=== PATIENT | female | born 1960 | race Caucasian/White ===

== ENCOUNTER 2020-03-21 12:41 | Outpatient (CLI) | payer OTHER, SELFPAY ==
[2020-03-22 13:20] LABS: SARS-CoV-2 RNA PCR Negative
== END 2020-03-21 12:42 | disposition home or self-care (01) ==
LOC: CHSLAB 12:45
PROVIDERS: PCP Emergency Medicine; Visit Provider Emergency Medicine
DX: Z03.818 Encounter for observation for suspected exposure to other biological agents ruled out (principal)
CPT/HCPCS: 87635; C9803; U0003

== ENCOUNTER 2020-04-18 06:34 | Outpatient (CLI) | payer OTHER, SELFPAY ==
[2020-04-18 06:56] LABS: Alanine Aminotransferase 29 U/L (14-59); Albumin Level 3.8 g/dL (3.4-5.0); Alkaline Phosphatase 47 U/L (46-116); Anion Gap 7.3 mmol/L (7-16); Aspartate Amino Transferase 20 U/L (15-37); Bilirubin,Total 0.3 mg/dL (0.00-1.00); Blood Urea Nitrogen 19 mg/dL (7-18); Calcium 8.9 mg/dL (8.5-10.1); Carbon Dioxide 35 mmol/L (21-32); Chloride 106 mmol/L (98-108); Cholesterol 185 mg/dL (0-200); Estimated Glomerular Filt Rate > 60; Glucose 98 mg/dL (70-99); HDL Direct 44 mg/dL (40-60); LDL Cholesterol Calculated 127 mg/dL (<130); Osmolality Calculated 300 mOsm/kg (285-295); Potassium 4.3 mmol/L (3.5-5.1); Sodium 144 mmol/L (136-145); Triglycerides 69 mg/dL (0-150)
== END 2020-04-18 06:35 | disposition home or self-care (01) ==
LOC: CHSLAB 06:37
PROVIDERS: PCP Emergency Medicine; Visit Provider Emergency Medicine
DX: E78.5 Hyperlipidemia, unspecified (principal); E11.9 Type 2 diabetes mellitus without complications
CPT/HCPCS: 36415; 80053; 80061; 83036

== ENCOUNTER 2020-05-02 06:35 | Outpatient (CLI) | payer OTHER, SELFPAY ==
[2020-05-03 18:31] LABS: SARS-CoV-2 RNA PCR Negative
== END 2020-05-02 06:36 | disposition home or self-care (01) ==
LOC: CHSLAB 06:38
PROVIDERS: PCP Emergency Medicine; Visit Provider Emergency Medicine
DX: Z11.59 Encounter for screening for other viral diseases (principal)
CPT/HCPCS: 87635; C9803; U0003

== ENCOUNTER 2020-10-27 06:52 | Outpatient (CLI) | payer OTHER, SELFPAY ==
--- NOTE | ~2020-10-27 | MM_ITS ---
EXAMINATION: MM screening [facility] BI w [facility] HISTORY: Screening TECHNIQUE: Craniocaudal and mediolateral oblique 3-D tomosynthesis images were obtained and synthetic 2-D images were generated. CAD analysis was submitted and interpreted. COMPARISON: 10/16/2019 BREAST PARENCHYMAL COMPOSITION: There are scattered areas of fibroglandular density. FINDINGS: There is no evidence of suspicious mass, calcification, or architectural distortion to sugg est malignancy in either breast. There has been no suspicious interval change. IMPRESSION: 1. No mammographic evidence of malignancy. 2. Recommend routine screening mammography in one year. BI-RADS Category 1: Negative Reviewed, dictated and finalized at location A. HANDLING SUPERVISOR
== END 2020-10-27 06:53 | disposition home or self-care (01) ==
LOC: CHSIMG 06:53
PROVIDERS: PCP Emergency Medicine; Visit Provider Emergency Medicine
DX: Z12.31 Encounter for screening mammogram for malignant neoplasm of breast (principal)
CPT/HCPCS: 77063; 77067

== ENCOUNTER 2021-03-12 06:13 | Outpatient (CLI) | payer OTHER, SELFPAY ==
[2021-03-12 07:00] LABS: Alanine Aminotransferase 29 U/L (14-59); Albumin Level 3.9 g/dL (3.4-5.0); Alkaline Phosphatase 58 U/L (46-116); Anion Gap 9 mmol/L (8-16); Aspartate Amino Transferase 14 U/L (15-37); Bilirubin,Total 0.3 mg/dL (0.00-1.00); Blood Urea Nitrogen 18 mg/dL (7-18); Calcium 8.8 mg/dL (8.5-10.1); Carbon Dioxide 30 mmol/L (21-32); Chloride 102 mmol/L (98-108); Cholesterol 199 mg/dL (0-200); Digoxin 0.7 ng/mL (0.9-2.0); Estimated Glomerular Filt Rate 59; Glucose 108 mg/dL (70-99); HDL Direct 40 mg/dL (40-60); LDL Cholesterol Calculated 130 mg/dL (<130); Osmolality Calculated 294 mOsm/kg (285-295); Potassium 4.2 mmol/L (3.5-5.1); Sodium 141 mmol/L (136-145); Total Protein 7.1 g/dL (6.4-8.2); Triglycerides 147 mg/dL (0-150)
[2021-03-12 07:40] LABS: Thyroid Stimulating Hormone Reflex 1.89 u/IU/mL (0.36-3.74)
== END 2021-03-12 06:14 | disposition home or self-care (01) ==
PROVIDERS: PCP Emergency Medicine; Visit Provider Internal Medicine Cardiovascular Disease
DX: E78.5 Hyperlipidemia, unspecified (principal); I49.9 Cardiac arrhythmia, unspecified; F41.9 Anxiety disorder, unspecified; R00.2 Palpitations; R60.0 Localized edema
CPT/HCPCS: 36415; 80053; 80061; 80162; 84443

== ENCOUNTER 2021-10-01 06:40 | Outpatient (CLI) | payer OTHER, SELFPAY ==
[2021-10-01 06:52] LABS: Hematocrit 42.1 % (35.0-49.0); Mean Corpuscular HGB Conc 33.3 g/dL (32.0-36.0); Mean Corpuscular Hemoglobin 29.4 pg (27.0-31.0); Mean Corpuscular Volume 88.4 fL (78.0-102.0); Mean Platelet Volume 10.3 fl (9.2-11.8); Platelet Count Result 255 K/mm3 (150-420); Red Blood Count 4.76 M/mm3 (4.20-5.40); Red Cell Distribution Width 13.1 % (11.6-14.4)
[2021-10-01 07:06] LABS: Alanine Aminotransferase 38 U/L (14-59); Albumin Level 4.1 g/dL (3.4-5.0); Alkaline Phosphatase 58 U/L (46-116); Anion Gap 10 mmol/L (8-16); Aspartate Amino Transferase 19 U/L (15-37); Bilirubin,Total 0.3 mg/dL (0.00-1.00); Blood Urea Nitrogen 19 mg/dL (7-18); Calcium 8.9 mg/dL (8.5-10.1); Carbon Dioxide 29 mmol/L (21-32); Chloride 102 mmol/L (98-108); Cholesterol 196 mg/dL (0-200); Estimated Glomerular Filt Rate > 60; Glucose 124 mg/dL (70-99); HDL Direct 42 mg/dL (40-60); LDL Cholesterol Calculated 129 mg/dL (<130); Osmolality Calculated 295 mOsm/kg (285-295); Potassium 4.4 mmol/L (3.5-5.1); Sodium 141 mmol/L (136-145); Total Protein 7.2 g/dL (6.4-8.2); Triglycerides 126 mg/dL (0-150)
== END 2021-10-01 06:41 | disposition home or self-care (01) ==
LOC: CHSLAB 06:43
PROVIDERS: PCP Family Medicine; Visit Provider Family Medicine
DX: F32.9 Major depressive disorder, single episode, unspecified (principal); F41.9 Anxiety disorder, unspecified; Z13.220 Encounter for screening for lipoid disorders; R73.9 Hyperglycemia, unspecified; I49.9 Cardiac arrhythmia, unspecified
CPT/HCPCS: 36415; 80053; 80061; 85027

== ENCOUNTER 2022-01-11 00:11 | Day surgery (SDC) | payer OTHER, SELFPAY ==
[2022-01-01 15:08] VITALS: BMI 30.2
[2022-01-11 06:15] VITALS: BP 148/66; PULSE 58; RESP 18; TEMP 37.4; O2SAT 100; BMI 31.6
[2022-01-11] MEDS: LACTATED RINGERS 1,000 ML 150 ML IV CONT (06:37)
--- NOTE | 2022-01-11 07:21 | P.PNAN_ITS ---
Anes - Initial Pre Proc Eval Procedure: Operation Date: 01/11/22 07:30 Proposed Procedures p Screening Colonoscopy - Zain Phillips MD Date/Time: 01/11/22 07:21 Surgeon: Zain Phillips MD Pre Op Diagnosis: neoplasm screening, family hx of colon ca Patient Data Age: 61 Gender: F Height: 1.73 m Weight: 94.4 kg Last Vital Signs Temp 99.3 F 01/11/22 06:15 Pulse 58 L 01/11/22 06:15 Resp 18 01/11/22 06:15 BP 148/66 H 01/11/22 06:15 Pulse Ox 100 01/11/22 06:15 Allergies Allergy/AdvReac Type Severity Reaction Status Date / Time Penicillins Allergy Mild Vomiting Verified 01/11/22 06:23 TAPE Allergy Mild Redness of Uncoded 01/01/22 15:06 Skin Home Medications Medication Instructions Recorded Confirmed Type digoxin 0.25 mcg PO DAILY 08/24/19 01/11/22 History metoprolol succinate 25 mg PO DAILY 08/24/19 01/11/22 History aspirin 325 mg tablet 325 mg PO .Every other day tablet 09/16/21 01/11/22 History Cbd 1 cap PO DAILY 01/01/22 01/11/22 History multivit with min-folic acid 1 tablet PO DAILY 01/01/22 01/11/22 History [Adult One Daily Multivitamin] sertraline 100 mg PO DAILY 01/01/22 01/11/22 History Patient hx anesthesia problems: none Family hx anesthesia problems: none Results Review: All pre-operative results and documents have been reviewed as part of the pre-operative evaluation. [facility] Past Medical History Medical History (Updated 09/16/21 @ 17:20 by Dante Fam DO) Anxiety Cardiac arrhythmia states history of AF; now NSR but occasionally goes in and out AF and paipitations Surgical History Surgical History H/O hysterectomy for benign disease History of appendectomy S/P tonsillectomy Family History Family History (Updated 09/16/21 @ 15:33 by Gretchen Iraheta) Mother Colon cancer Social History Social History Smoking status: Former smoker Tobacco type: cigarettes Smoking end date: 10/03/03 Alcohol intake: current Drinks per week: 10 Living arrangements: with family Spiritual care concerns: No Anes - Eval Final PreProcedure Day of Procedure 01/11/22 07:21 Patient weight: obese Heart: regular rate and rhythm Lungs: clear to auscultation Airway: Mallampati scale Neurological: alert and oriented Last oral intake: >/= 8 hours ASA classification: II Emergent: no Anesthetic plan: proceed Anesthesia type and monitoring: general GIVS and standard monitoring Results Review: All pre-operative results and documents have been reviewed as part of the pre-operative evaluation. Informed Consent: The patient's anesthetic plan and its attendant risks and benefits were discussed with the patient/family/POA. Questions were solicited and answers provided to the satisfaction of the patient/family/POA.
--- NOTE | 2022-01-11 07:22 | WPDGICN ---
Assessment and Plan Assessment and plan (1) Encounter for screening for colorectal cancer in high risk patient: Code(s): Z12.11 - Encounter for screening for malignant neoplasm of colon; Z12.12 - Encounter for screening for malignant neoplasm of rectum; Z91.89 - Other specified personal risk factors, not elsewhere classified Status: Acute Assessment and Plan: Colonoscopy with possible biopsy or polypectomy or cautery or injection of substances. GI Consult Note Consult date/time: 01/11/22 07:22 HPI: Charisse Loja is a 61 year old female referred for colon cancer screening. She has a family history of genetics for high risk of colon cancer her. Her last colonoscopy, 3 years ago was negative for polyps Review of Systems Review of Systems: All systems reviewed & are unremarkable except as noted in HPI and below PMFSH Past Medical History Medical History Anxiety Cardiac arrhythmia states history of AF; now NSR but occasionally goes in and out AF and paipitations Surgical History Surgical History H/O hysterectomy for benign disease History of appendectomy S/P tonsillectomy Family History Family History Mother Colon cancer Social History Social History Smoking status: Former smoker Tobacco type: cigarettes Smoking end date: 10/03/03 Alcohol intake: current Drinks per week: 10 Living arrangements: with family Spiritual care concerns: No Meds Home Medications and Allergies Home Medications Medication Instructions Recorded Confirmed Type digoxin 0.25 mcg PO DAILY 08/24/19 01/11/22 History metoprolol succinate 25 mg PO DAILY 08/24/19 01/11/22 History aspirin 325 mg tablet 325 mg PO .Every other day tablet 09/16/21 01/11/22 History Cbd 1 cap PO DAILY 01/01/22 01/11/22 History multivit with min-folic acid 1 tablet PO DAILY 01/01/22 01/11/22 History [Adult One Daily Multivitamin] sertraline 100 mg PO DAILY 01/01/22 01/11/22 History Allergies Allergy/AdvReac Type Severity Reaction Status Date / Time Penicillins Allergy Mild Vomiting Verified 01/11/22 06:23 TAPE Allergy Mild Redness of Uncoded 01/01/22 15:06 Skin Vital Signs Vital Signs - 24 hr 01/11/22 06:15 Temperature 37.4 C Pulse Rate 58 L Respiratory Rate 18 Blood Pressure 148/66 H Pulse Oximetry 100 Exam Const: General: alert Orientation/consciousness: patient oriented x3 Resp: Auscultation: clear to auscultation bilaterally Cardio: Rhythm: regular rhythm GI: GI Palp: Yes Soft to palpation and No Tenderness to palpation present (GI) Neuro: General: patient oriented x3
[2022-01-11] MEDS: SIMETHICONE ORAL SUSPENSION 20 MG/0.3 ML 30 ML BOTTLE 0.6 ML IRRIGATION (07:31)
[2022-01-11 07:40] VITALS: BP 130/53; PULSE 52; RESP 16; O2SAT 100
[2022-01-11 07:50] VITALS: BP 151/73; PULSE 54; RESP 15; O2SAT 100
[2022-01-11 08:00] VITALS: BP 162/73; PULSE 55; RESP 15; O2SAT 100
== END 2022-01-11 08:06 | disposition home or self-care (01) ==
PROVIDERS: PCP Family Medicine; Visit Provider Internal Medicine Gastroenterology
PROC: 0DJD8ZZ Inspection of Lower Intestinal Tract, Via Natural or Artificial Opening Endoscopic (ICD-10-PCS; CPT 45378; principal; 2022-01-11 07:30)
DX: Z12.11 Encounter for screening for malignant neoplasm of colon (principal); Z80.0 Family history of malignant neoplasm of digestive organs; K64.8 Other hemorrhoids; K57.30 Diverticulosis of large intestine without perforation or abscess without bleeding
CPT/HCPCS: 45378; J2704; J7120

== ENCOUNTER 2022-05-28 06:28 | Outpatient (CLI) | payer OTHER, SELFPAY ==
[2022-05-28 09:55] LABS: Digoxin 1.4 ng/mL (0.9-2.0); Thyroid Stimulating Hormone 0.73 uIU/mL (0.36-3.74)
== END 2022-05-28 06:29 | disposition home or self-care (01) ==
LOC: CHSLAB 06:30
PROVIDERS: PCP Family Medicine; Visit Provider Internal Medicine Cardiovascular Disease
DX: R00.2 Palpitations (principal)
CPT/HCPCS: 36415; 80162; 84443

== ENCOUNTER 2023-02-16 08:33 | Outpatient (CLI) | payer OTHER, SELFPAY ==
--- NOTE | 2023-02-16 11:00 | NEURO_ITS ---
Impression: # Complains of numbness of hands, left more than right. # Mild left Carpal Tunnel Syndrome. # No ulnar neuropathy. # Normal needle/EMG exam Nerve Conduction Studies Anti Sensory Summary Table Stim Site NR Peak (ms) P-T Amp (?V) Site1 Site2 Delta-P (ms) Dist (cm) Emre (m/s) Left Median Anti Sensory (2-3nd Digit) Wrist 4.0 31.5 Wrist 2-3nd Digit 4.0 14.0 35 Wrist 4.1 30.4 Wrist 2-3nd Digit 4.0 14.0 35 Right Median Anti Sensory (2-3nd Digit) Wrist 2.9 19.4 Wrist 2-3nd Digit 2.9 14.0 48 Wrist 3.1 27.8 Wrist 2-3nd Digit 2.9 14.0 48 Left Radial Anti Sensory (Base 1st Digit) Wrist 1.8 24.5 Wrist Base 1st Digit 1.8 0.0 Right Radial Anti Sensory (Base 1st Digit) Wrist 2.3 9.7 Wrist Base 1st Digit 2.3 0.0 Left Ulnar Anti Sensory (5th Digit) Wrist 2.6 24.6 Wrist 5th Digit 2.6 14.0 54 Right Ulnar Anti Sensory (5th Digit) Wrist 2.7 24.1 Wrist 5th Digit 2.7 14.0 52 Motor Summary Table Stim Site NR Onset (ms) O-P Amp (mV) Site1 Site2 Delta-0 (ms) Dist (cm) Emre (m/s) Left Median Motor (Abd Poll Brev) Wrist 3.6 3.3 Elbow Wrist 5.3 29.0 55 Elbow 8.9 2.9 Right Median Motor (Abd Poll Brev) Wrist 3.2 6.1 Elbow Wrist 5.3 28.0 53 Elbow 8.5 5.8 Left Ulnar Motor (Abd Dig Minimi) Wrist 2.4 6.3 A Elbow Wrist 5.2 29.0 56 A Elbow 7.6 3.4 Right Ulnar Motor (Abd Dig Minimi) Wrist 2.5 7.0 A Elbow Wrist 5.1 29.0 57 A Elbow 7.6 3.8 F Wave Studies NR F-Lat (ms) L-R F-Lat (ms) Left Median (Mrkrs) (Abd Poll Brev) 28.22 0.68 Right Median (Mrkrs) (Abd Poll Brev) 27.54 0.68 Left Ulnar (Mrkrs) (Abd Dig Min) 28.23 0.22 Right Ulnar (Mrkrs) (Abd Dig Min) 28.01 0.22 EMG Side Muscle Nerve Root Ins Act Fibs Amp Dur Recrt Comment Right 1stDorInt Ulnar C8-T1 Nml Nml Nml Nml Nml Right Ext Indicis Radial (Post Int) C7-8 Nml Nml Nml Nml Nml Right Ext Digitorum Radial (Post Int) C7-8 Nml Nml Nml Nml Nml Right BrachioRad Radial C5-6 Nml Nml Nml Nml Nml Right PronatorTeres Median C6-7 Nml Nml Nml Nml Nml Right Abd Poll Brev Median C8-T1 Nml Nml Nml Nml Nml Left 1stDorInt Ulnar C8-T1 Nml Nml Nml Nml Nml Left Ext Indicis Radial (Post Int) C7-8 Nml Nml Nml Nml Nml Left Ext Digitorum Radial (Post Int) C7-8 Nml Nml Nml Nml Nml Left BrachioRad Radial C5-6 Nml Nml Nml Nml Nml Left PronatorTeres Median C6-7 Nml Nml Nml Nml Nml Left Abd Poll Brev Median C8-T1 Nml Nml Nml Nml Nml Right ABD Dig Min Ulnar C8-T1 Nml Nml Nml Nml Nml Left ABD Dig Min Ulnar C8-T1 Nml Nml Nml Nml Nml MTDD
== END 2023-02-16 08:34 | disposition home or self-care (01) ==
PROVIDERS: PCP Family Medicine; Visit Provider Family Medicine
DX: G56.02 Carpal tunnel syndrome, left upper limb (principal)
CPT/HCPCS: 95886; 95911

== ENCOUNTER 2023-02-23 06:47 | Outpatient (CLI) | payer OTHER, SELFPAY ==
[2023-02-23 08:01] LABS: Alanine Aminotransferase 35 U/L (14-59); Albumin Level 4.2 g/dL (3.4-5.0); Alkaline Phosphatase 62 U/L (46-116); Anion Gap 7 mmol/L (8-16); Aspartate Amino Transferase 20 U/L (15-37); Bilirubin,Total 0.2 mg/dL (0.00-1.00); Blood Urea Nitrogen 22 mg/dL (7-18); Carbon Dioxide 30 mmol/L (21-32); Chloride 103 mmol/L (98-108); Estimated Glomerular Filt Rate > 60; Folic Acid 7.9 ng/mL (8.6->20); Glucose 107 mg/dL (70-99); Magnesium 2.1 mg/dL (1.8-2.4); Osmolality Calculated 293 mOsm/kg (285-295); Potassium 4.6 mmol/L (3.5-5.1); Sodium 140 mmol/L (136-145); Total Protein 7.7 g/dL (6.4-8.2); Vitamin B12 271 pg/mL (193-986)
[2023-02-23 08:10] LABS: Thyroid Stimulating Hormone Reflex 1.77 u/IU/mL (0.36-3.74)
== END 2023-02-23 06:48 | disposition home or self-care (01) ==
LOC: CHSLAB 06:49
PROVIDERS: PCP Family Medicine; Visit Provider Family Medicine
DX: E11.9 Type 2 diabetes mellitus without complications (principal); E53.8 Deficiency of other specified B group vitamins; R20.2 Paresthesia of skin
CPT/HCPCS: 36415; 80053; 82607; 82746; 83735; 84443

== ENCOUNTER 2023-04-04 06:42 | Outpatient (CLI) | payer OTHER, SELFPAY ==
--- NOTE | ~2023-04-04 | MM_ITS ---
EXAMINATION: MM screening idris BI w [facility] HISTORY: Screening mammogram, family history of breast cancer in her mother. TECHNIQUE: Craniocaudal and mediolateral oblique 3-D tomosynthesis images were obtained and synthetic 2-D images were generated. CAD analysis was submitted and interpreted. COMPARISON: 10/27/2020, 10/16/2019 BREAST PARENCHYMAL COMPOSITION: There are scattered areas of fibroglandular density. FINDINGS: No suspicious mass, calcification, or architectural distortion are identified in either steve ast to suggest malignancy. There has been no suspicious interval change. IMPRESSION: 1. No mammographic evidence of malignancy. 2. Recommend routine screening mammography in one year. BI-RADS Category 1: Negative Reviewed, dictated and finalized at location A.
== END 2023-04-04 06:43 | disposition home or self-care (01) ==
LOC: CHSIMG 06:43
PROVIDERS: PCP Family Medicine; Visit Provider Family Medicine
DX: Z12.31 Encounter for screening mammogram for malignant neoplasm of breast (principal)
CPT/HCPCS: 77063; 77067

== ENCOUNTER 2023-11-10 15:16 | Outpatient (CLI) | payer MEDICARE, SELFPAY ==
[2023-11-10 15:47] LABS: Basophils Absolute Auto 0.04 K/mm3 (0.00-0.10); Basophils Percent Auto 0.4 % (0.0-1.0); Eosinophils Absolute Auto 0.16 K/mm3 (0.02-0.50); Eosinophils Percent Auto 1.8 % (1.0-6.0); Hematocrit 38.6 % (35.0-42.0); Hemoglobin 12.1 g/dL (11.7-13.8); Immature Granulocyte Absolute 0.06 K/mm3 (0.00-0.00); Immature Granulocyte Percent A 0.7 % (0.0-0.0); Lymphocytes Absolute Auto 1.47 K/mm3 (1.10-4.50); Lymphocytes Percent Auto 16.4 % (18.0-42.0); Mean Corpuscular HGB Conc 31.3 g/dL (32.0-36.0); Mean Corpuscular Hemoglobin 26.1 pg (27.0-31.0); Mean Corpuscular Volume 83.4 fL (78.0-102.0); Mean Platelet Volume 9.8 fl (9.2-11.8); Monocytes Absolute Auto 0.67 K/mm3 (0.10-0.90); Monocytes Percent Auto 7.5 % (2.0-11.0); Neutrophils Absolute Auto 6.6 K/mm3 (1.7-7.2); Neutrophils Percent Auto 73.2 % (50.0-70.0); Platelet Count Result 244 K/mm3 (150-420); Red Blood Count 4.63 M/mm3 (4.20-5.40); Red Cell Distribution Width 14.2 % (11.6-14.4)
[2023-11-10 15:59] LABS: Hemoglobin A1C 5.8 % (<5.7)
[2023-11-10 16:24] LABS: Alanine Aminotransferase 25 U/L (14-59); Albumin Level 3.8 g/dL (3.4-5.0); Alkaline Phosphatase 63 U/L (46-116); Anion Gap 11 mmol/L (8-16); Aspartate Amino Transferase < 10 U/L (15-37); Bilirubin,Total 0.3 mg/dL (0.00-1.00); Blood Urea Nitrogen 22 mg/dL (7-18); Calcium 8.3 mg/dL (8.5-10.1); Carbon Dioxide 28 mmol/L (21-32); Chloride 101 mmol/L (98-108); Cholesterol 209 mg/dL (0-200); Estimated Glomerular Filt Rate 46; Glucose 114 mg/dL (70-99); HDL Direct 36 mg/dL (40-60); LDL Cholesterol Calculated 131 mg/dL (<130); Osmolality Calculated 294 mOsm/kg (285-295); Potassium 4.7 mmol/L (3.5-5.1); Sodium 140 mmol/L (136-145); Total Protein 7.4 g/dL (6.4-8.2); Triglycerides 208 mg/dL (0-150)
[2023-11-10 17:27] LABS: Digoxin 1.4 ng/mL (0.9-2.0); Thyroid Stimulating Hormone Reflex 0.69 u/IU/mL (0.36-3.74)
== END 2023-11-10 15:17 | disposition home or self-care (01) ==
PROVIDERS: PCP Family Medicine; Visit Provider Internal Medicine Cardiovascular Disease
DX: I48.91 Unspecified atrial fibrillation (principal); E11.9 Type 2 diabetes mellitus without complications; R00.2 Palpitations
CPT/HCPCS: 36415; 80053; 80061; 80162; 83036; 84443; 85025

== ENCOUNTER 2024-05-01 12:18 | Outpatient (CLI) | payer MEDICARE, SELFPAY ==
--- NOTE | ~2024-05-01 | MM_ITS ---
EXAMINATION: MM screening idris BI w [facility] HISTORY: Screening TECHNIQUE: Craniocaudal and mediolateral oblique 3-D tomosynthesis images were obtained and synthetic 2-D images were generated. CAD analysis was submitted and interpreted. COMPARISON: Comparison to multiple prior studies sequentially, with oldest reviewed study dated 10/16. BREAST PARENCHYMAL COMPOSITION: There are scattered areas of fibroglandular density. FINDINGS: There is no evidence of suspicious mass, calcification, or architectural distortion to sugg est malignancy in either breast. There has been no suspicious interval change. IMPRESSION: 1. No mammographic evidence of malignancy. 2. Recommend routine screening mammography in one year. BI-RADS Category 1: Negative Reviewed, dictated and finalized at location B.
== END 2024-05-01 12:19 | disposition home or self-care (01) ==
PROVIDERS: PCP Family Medicine; Visit Provider Family Medicine
DX: Z12.31 Encounter for screening mammogram for malignant neoplasm of breast (principal)
CPT/HCPCS: 77063; 77067

== ENCOUNTER 2025-01-18 15:20 | Outpatient (NON) | payer MEDICARE, SELFPAY ==
--- OUTSIDE RECORDS SUMMARY | 2025-01-18 15:24 | XMS_ITS | Encounter Summary ---
Author Organization [facility] Healthcare Address [address] [place] [address] Care Team Providers Care Failure Analysis Engineer Name Role Phone Dante Fam DO Primary Care Provider Encounter Details Date Type Department Care Team (Late st Contact Info) Description 11/19/2024 Results Follow-Up [place] [facility] Lamin[facility] Operator at [address] [address] Mark Burkett NP [address] [place] [address] [address] [place] [address] Social History Tobacco Use Types Packs/Day Years Used Date Smoking Tobacco: Former Smokeless Tobacco: Never Personal Safety Answer Date Recorded Have you ever been in or are you currently in a harmful physical or emotional relationship or is someone making you feel afraid or unsafe? Denies 08/06/2024 Comments No Sex and Gender Information Value Date Recorded Sex Assigned at Not on file Legal Sex Female 8:08 AM BEHAVIORAL HEALTH CLINICIAN Gender Identity Female 08/19/2019 8:00 PM BEHAVIORAL HEALTH CLINICIAN Sexual Orientation Straight 08/19/2019 8: 00 PM BEHAVIORAL HEALTH CLINICIAN documented as of this encounter Plan of Treatment Not on file documented as of this encounter Visit Diagnoses Not on filedocumented in this encounter Care Teams Failure Analysis Engineer Relationship Specialty Start Date End Date Dante Fam DO [address] [place] [address] PCP - General Family Medicine 05/24/22 documented as of this encounter
--- OUTSIDE RECORDS SUMMARY | 2025-01-18 15:24 | XMS_ITS | Referral Summary ---
Author Organization [facility] Medical [facility] Building A Address [address] [place] [address] Care Team Providers Care Child Support Agent Name Role Phone JimDante watkins Primary Care Provider Encounters Date Type Department Care Team Description 11/23/2024 7:59 AM CORE JAVA ENGINEER - 11/23/2024 11:59 PM CORE JAVA ENGINEER Hospital Encounter [address] [address] Discharge Disposition: Discharge to home or self care 11/23/2024 7:59 AM CORE JAVA ENGINEER - 11/23/2024 11:59 PM CORE JAVA ENGINEER Hospital Encounter [facility] [address] [place] [id number] Typical atrial flutter (HCC); Atrial fibrillation, unspecified type (HCC) Discharge Disposition: Discharge to home or self care 11/23/2024 7:59 AM CORE JAVA ENGINEER - 11/23/2024 11:59 PM CORE JAVA ENGINEER Hospital Encounter [address] [address] Discharge Disposition: Discharge to home or self care 11/23/2024 7:58 AM CORE JAVA ENGINEER - 11/23/2024 11:59 PM CORE JAVA ENGINEER Hospital Encounter [address] [address] Typical atrial flutter (HCC); Atrial fibrillation, unspecified type (HCC) Discharge Disposition: Discharge to home or self care 11/19/2024 Results Follow-Up [place] Skip Miner at [address] [address] Mark Burkett NP 11/12/2024 11:45 AM CORE JAVA ENGINEER Office Visit [place] [facility]er at [address] [place] [address] Rodriguez Demarco MD Typical atrial flutter (HCC) (Primary Dx); Syncope and collapse; Primary hypertension; Atrial fibrillation, unspecified type (HCC) from Last 3 Months Allergies Active Allergy Reactions Criticality Noted Date Comments Penicillins Stomach upset,Vomiting Low 05/30/2023 Medications sertraline (ZOLOFT) 100 mg tablet 1 tablet (100 mg total) daily 01/30/2021 Active flecainide (TAMBOCOR) 50 mg tablet Take 1 tablet (50 mg total) by mouth 2 (two) times a day 60 tablet 11 08/09/2024 Active apixaban (ELIQUIS) 5 mg tablet Take 1 tablet (5 mg total) by mouth 2 (two) times a day 180 tablet 3 08/28/2024 Active lisinopriL (PRINIVIL,ZESTRI L) 20 mg tablet TAKE 1 TABLET DAILY 90 tablet 3 10/01/2024 Active metoprolol XL (TOPROL-XL) 25 mg extended release tablet TAKE 1 TABLET DAILY 90 tablet 3 10/01/2024 Active Active Problems Problem Noted Date Diagnosed Date Typical atrial flutter 11/12/2024 Syncope and collapse 11/12/2024 Primary hypertension 05/30/2023 Palpitation 08/20/2019 Lower extremity edema 08/20/2019 Immunizations Immunization Administration Dates Next Due Pfizer SARS-CoV-2 Monovalent Vaccination (12+ Yrs) PURPLE 12/24/2020 Social History Tobacco Use Types Packs/Day Years Used Date Smoking Tobacco: Former Smokeless Tobacco: Never Tobacco Cessation:Counseling Given: Not Answered Personal Safety Answer Date Recorded Have you ever been in or are you currently in a harmful physical or emotional relationship or is someone making you feel afraid or unsafe? Denies 08/06/2024 Comments No Sex and Gender Information Value Date Recorded Sex Assigned at Not on file Legal Sex Female 8:08 AM CORE JAVA ENGINEER Gender Identity Female 08/19/2019 8:00 PM CORE JAVA ENGINEER Sexual Orientation Straight 08/19/2019 8: 00 PM CORE JAVA ENGINEER Last Filed Vital Signs Vital Sign Reading Time Taken Comments Blood Pressure 108/72 11/12/2024 12:11 PM CORE JAVA ENGINEER Pulse 66 11/12/2024 12:11 PM CORE JAVA ENGINEER Temperature 37.2 C (98.9 F) 08/06/2024 6:04 PM CORE JAVA ENGINEER Respiratory Rate 18 11/12/2024 12:11 PM CORE JAVA ENGINEER Oxygen Saturation 98% 08/06/2024 6:04 PM CORE JAVA ENGINEER Inhaled Oxygen Concentration - - Weight 94.3 kg (208 lb) 11/12/2024 12:11 PM CORE JAVA ENGINEER Height 172.7 cm (5' 8 ) 11/12/2024 12:11 PM CORE JAVA ENGINEER Body Mass Index 31.63 11/12/2024 12:11 PM CORE JAVA ENGINEER Plan of Treatment Not on file Procedures Procedure Name Priority Date/Time Associated Diagnosis Comments STRESS TEST FOR DUAL READ Schedule Routine, Read Routine (OP Routine) 11/23/2024 10:32 AM CORE JAVA ENGINEER Typical atrial flutter (HCC) Atrial fibrillation, unspecified type (HCC) NM MPI SPECT (REST AND/OR STRESS) MULTIPLE STUDIES Schedule Routine, Read Routine (OP Routine) 11/23/2024 10:32 AM CORE JAVA ENGINEER Typical atrial flutter (HCC) Atrial fibrillation, unspecified type (HCC) ECG 12-LEAD Routine 11/12/2024 12:43 PM CORE JAVA ENGINEER Typical atrial flutter (HCC) Syncope and collapse Primary hypertension from Last 3 Months Results * NM MPI SPECT (Rest and/or Stress) Multiple Studies (11/23/2024 10:32 AM CORE JAVA ENGINEER) Anatomical Region Laterality Modality Body N/A Nuclear Medicine 11/23/2024 8:08 AM CORE JAVA ENGINEER Narrative 11/23/2024 1:00 PM CORE JAVA ENGINEER [address] [place] [address] Lexiscan Report Patient Name: ALIRIO RIVERA CHARISSE, L : 1960 Study Date: 11/23/2024 8:08:13 AM Gender: F Tech: Ref Provider: RODRIGUEZ DEMARCO Height(Cm): BSA: Weight(Kg): Order Provider: RODRIGUEZ DEMARCO PROCEDURES: Pharmacologic SPECT Report.: Myocardial perfusion imaging with Sestamibi SPECT at rest and post regadenoson (Lexiscan) infusion. INDICATIONS: I48.3 Typical atrial flutter and I48.91 Unspecified atrial fibrillation. FINDINGS: Procedure Data: Sestamibi injected at rest was 10.2 millicuries Sestamibi injected at peak exercise was 29.0 millicuries Predicted Maximal HR 154 bpm Perfusion: Normal perfusion imaging. LV Function: Left ventricular ejection fraction is 65 %. CONCLUSIONS: 1. Myocardial Perfusion: Normal rest and stress images. 2. Left ventricle: Normal size and systolic function (visually confirmed EF >50%). Electronically Signed By: Tierney Regalado MD 11/23/2024 12:09:13 PM CORE JAVA ENGINEER Procedure Note Tierney Regalado MD - 11/23/[address] [address] [employer] Report Patient Name: CHARISSE GUERRERO L : 1960 Study Date: 11/23/2024 8:08:13 AM Gender: F Tech: Ref Provider: RODRIGUEZ DEMARCO Height(Cm): BSA: Weight(Kg): Order Provider: RODRIGUEZ DEMARCO PROCEDURES: Pharmacologic SPECT Report.: Myocardial perfusion imaging with Sestamibi SPECT at rest and postregadenoson (Lexiscan) infusion. INDICATIONS: I48.3 Typical atrial flutter and I48.91 Unspecified atrial fibrillation. FINDINGS: Procedure Data: Sestamibi injected at rest was 10.2 millicuries Sestamibi injected at peak exercise was 29.0 millicuries Predicted Maximal HR 154 bpm Perfusion: Normal perfusion imaging. LV Function: Left ventricular ejection fraction is 65 %. CONCLUSIONS: 1. Myocardial Perfusion: Normal rest and stress images. 2. Left ventricle: Normal size and systolic function (visually confirmedEF >50%). Electronically Signed By: Tierney Regalado MD 11/23/2024 12:09:13 PM CORE JAVA ENGINEER Rodriguez Demarco MD [facility] PROCEDURES Final Result * Stress Test for Myocardial Perfusion (11/23/2024 10:32 AM CORE JAVA ENGINEER) Anatomical Region Laterality Modality Nuclear Medicine 11/23/2024 8:30 AM CORE JAVA ENGINEER Narrative 11/23/2024 11:18 AM CORE JAVA ENGINEER [address] [address] [place] Report Patient Name: CHARISSE GUERRERO L : 1960 Study Date: 11/23/2024 8:30:00 AM Gender: F Tech: ivon Gaytan Provider: RODRIGUEZ DEMARCO Height(Cm): 173 BSA: 3.12 Weight(Kg): 203 Heart Rate: 131 Order Provider: RODRIGUEZ DEMARCO PROCEDURES: Pharmacologic SPECT Report.: Myocardial perfusion imaging with Sestamibi SPECT at rest and post regadenoson (Lexiscan) infusion. INDICATIONS: I48.3 Typical atrial flutter and I48.91 Unspecified atrial fibrillation. FINDINGS: Procedure Data: Resting HR 64 bpm Peak HR: 89 bpm Predicted Maximal HR 154 bpm Target HR: 131 bpm Percent Max Predicted HR Achieved: 57.79 % Baseline BP: 129/72 mmHg Peak BP: 149/74 mmHg Exercise Time: 00:14 Performed By: judah eduardo. Supervising Physician: The Supervising Physician is cisco. Reason for Termination: Lexiscan protocol complete. Resting ECG: Normal sinus rhythm. Post Pharm ECG: No diagnostic ST changes. Arrhythmia: No arrhythmias seen. Cardiac Symptoms With Stress: Symptoms with stress were None. CONCLUSIONS: 1. Negative Lexiscan pharmacologic stress test for chest pain or EKG changes. 2. Nuclear images are pending and they will be reported separately. Electronically Signed By: Tierney Regalado MD 11/23/2024 10:53:38 AM CORE JAVA ENGINEER Procedure Note Tierney Regalado MD - 11/23/[address] [address] [place] Report Patient Name: CHARISSE GUERRERO L : 1960 Study Date: 11/23/2024 8:30:00 AM Gender: F Tech: ivon Gaytan Provider: RODRIGUEZ DEMARCO Height(Cm): 173 BSA: 3.12 Weight(Kg): 203 Heart Rate: 131 Order Provider: RODRIGUEZ DEMARCO PROCEDURES: Pharmacologic SPECT Report.: Myocardial perfusion imaging with Sestamibi SPECT at rest and postregadenoson (Lexiscan) infusion. INDICATIONS: I48.3 Typical atrial flutter and I48.91 Unspecified atrial fibrillation. FINDINGS: Procedure Data: Resting HR 64 bpm Peak HR: 89 bpm Predicted Maximal HR 154 bpm Target HR: 131 bpm Percent Max Predicted HR Achieved: 57.79 % Baseline BP: 129/72 mmHg Peak BP: 149/74 mmHg Exercise Time: 00:14 Performed By: judah eduardo. Supervising Physician: The Supervising Physician is cisco. Reason for Termination: Lexiscan protocol complete. Resting ECG: Normal sinus rhythm. Post Pharm ECG: No diagnostic ST changes. Arrhythmia: No arrhythmias seen. Cardiac Symptoms With Stress: Symptoms with stress were None. CONCLUSIONS: 1. Negative Lexiscan pharmacologic stress test for chest pain or EKGchanges. 2. Nuclear images are pending and they will be reported separately. Electronically Signed By: Tierney Regalado MD 11/23/2024 10:53:38 AM CORE JAVA ENGINEER Rodriguez Demarco MD CV STRESS PROCEDURES Final Resu lt * ECG 12 lead (11/12/2024 12:43 PM CORE JAVA ENGINEER) Rodriguez Demarco MD ECG ORDERABLES Final Result from Last 3 Months Insurance MEDICARE [facility] MEDICARE AET SENIOR SUPPLEMENT Care Teams Child Support Agent Relationship Specialty Start Date End Date Dante Fam DO [address] [place] [address] PCP - General Family Medicine 05/24/22
--- OUTSIDE RECORDS SUMMARY | 2025-01-18 15:24 | XMS_ITS | Clinical Summary ---
Author Organization [facility] A Address [address] [place] [address] Care Team Providers Care Hybrid Technologist Name Role Phone NazYanely wildermarlyn BinghamSaunders Primary Care Provider Allergies Active Allergy Reactions Criticality Noted Date [...] 05/30/2023 Palpitation 08/20/2019 Lower extremity edema 08/20/2019 Encounters Date Type Department Care Team Description 11/23/2024 7:59 AM CLINICAL DATA ANALYST - 11/23/2024 11:59 PM CLINICAL DATA ANALYST Hospital Encounter [facility] [address] [address] Discharge Disposition: Discharge to home or self care 11/23/2024 7:59 AM CLINICAL DATA ANALYST - 11/23/2024 11:59 PM CLINICAL DATA ANALYST Hospital Encounter [facility] [address] [place] [id number] Typical atrial flutter (HCC); Atrial fibrillation, unspecified type (HCC) Discharge Disposition: Discharge to home or self care 11/23/2024 7:59 AM CLINICAL DATA ANALYST - 11/23/2024 11:59 PM CLINICAL DATA ANALYST Hospital Encounter [address] [address] Discharge Disposition: Discharge to home or self care 11/23/2024 7:58 AM CLINICAL DATA ANALYST - 11/23/2024 11:59 PM CLINICAL DATA ANALYST Hospital Encounter [address] [address] Typical atrial flutter (HCC); Atrial fibrillation, unspecified type (HCC) Discharge Disposition: Discharge to home or self care 11/19/2024 Results Follow-Up [facility] at [address] [phone] Mark Burkett NP 11/12/2024 11:45 AM CLINICAL DATA ANALYST Office Visit [facility] at [address] [phone] Juan Manuel Demarco MD Typical atrial flutter (HCC) (Primary Dx); Syncope and collapse; Primary hypertension; Atrial fibrillation, unspecified type (HCC) from Last 3 Months Immunizations Immunization Administration Dates Next Due Pfizer [...] on file Legal Sex Female 8:08 AM CLINICAL DATA ANALYST Gender Identity Female 08/19/2019 8:00 PM CLINICAL DATA ANALYST Sexual Orientation Straight 08/19/2019 8: 00 PM CLINICAL DATA ANALYST Obstetrics History Last Filed Vital Signs Vital Sign Reading Time Taken Comments Blood Pressure 108/72 11/12/2024 12:11 PM CLINICAL DATA ANALYST Pulse 66 11/12/2024 12:11 PM CLINICAL DATA ANALYST Temperature 37.2 C (98.9 F) 08/06/2024 6:04 PM CLINICAL DATA ANALYST Respiratory Rate 18 11/12/2024 12:11 PM CLINICAL DATA ANALYST Oxygen Saturation 98% 08/06/2024 6:04 PM CLINICAL DATA ANALYST Inhaled Oxygen Concentration - - Weight 94.3 kg (208 lb) 11/12/2024 12:11 PM CLINICAL DATA ANALYST Height 172.7 cm (5' 8 ) 11/12/2024 12:11 PM CLINICAL DATA ANALYST Body Mass Index 31.63 11/12/2024 12:11 PM CLINICAL DATA ANALYST Plan of Treatment Health Maintenance Due Date Last Done Comments Breast Cancer Screening-Mammogram 1960 Colon Cancer Screening-Colonoscopy 1960 Depression Screening 1960 Fall Risk Assessment 1960 Hepatitis C Screening 1960 Osteoporosis Screening-Bone Density Scan 1960 Hepatitis B Screening 1976 DTaP/Tdap/Td Vaccine (1 - Tdap) 04/12/1992 2 Pneumococcal vaccine 65+ (1 of 1 - PCV) 2008 Zoster Vaccine (1 of 2) 2008 Well Visit 65+ 2023 Covid-19 Vaccine ( - season) 2024 10/29/2021, 01/21/2021, 12/24/2020 Influenza Vaccine (Season Ended) 2025 Procedures Procedure Name Priority Date/Time Associated Diagnosis Comments STRESS TEST FOR DUAL READ Schedule Routine, Read Routine (OP Routine) 11/23/2024 10:32 AM CLINICAL DATA ANALYST Typical atrial flutter (HCC) Atrial fibrillation, unspecified type (HCC) NM MPI SPECT (REST AND/OR STRESS) MULTIPLE STUDIES Schedule Routine, Read Routine (OP Routine) 11/23/2024 10:32 AM CLINICAL DATA ANALYST Typical atrial flutter (HCC) Atrial fibrillation, unspecified type (HCC) ECG 12-LEAD Routine 11/12/2024 12:43 PM CLINICAL DATA ANALYST Typical atrial flutter (HCC) Syncope and collapse Primary hypertension from Last 3 Months Results * NM MPI SPECT (Rest and/or Stress) Multiple Studies (11/23/2024 10:32 AM CLINICAL DATA ANALYST) Anatomical Region Laterality Modality Body N/A Nuclear Medicine 11/23/2024 8:08 AM CLINICAL DATA ANALYST Narrative 11/23/2024 1:00 PM CLINICAL DATA ANALYST [address] [address] [employer] Report Patient Name: CHARISSE GUERRERO L : 1960 Study Date: 11/23/2024 8:08:13 AM Gender: F Tech: Ref Provider: JUAN MANUEL DEMARCO Height(Cm): BSA: Weight(Kg): Order Provider: JUAN MANUEL DEMARCO PROCEDURES: Pharmacologic SPECT Report.: Myocardial perfusion [...] By: Tierney Regalado MD 11/23/2024 12:09:13 PM CLINICAL DATA ANALYST Procedure Note Tierney Regalado MD - 11/23/[address] [place] [address] [employer] Report Patient Name: CHARISSE GUERRERO L : 1960 Study Date: 11/23/2024 8:08:13 AM Gender: F Tech: Ref Provider: JUAN MANUEL DEMARCO Height(Cm): BSA: Weight(Kg): Order Provider: JUAN MANUEL DEMARCO PROCEDURES: Pharmacologic SPECT Report.: Myocardial perfusion [...] By: Tierney Regalado MD 11/23/2024 12:09:13 PM CLINICAL DATA ANALYST Juan Manuel Demarco MD [facility] PROCEDURES Final Result * Stress Test for Myocardial Perfusion (11/23/2024 10:32 AM CLINICAL DATA ANALYST) Anatomical Region Laterality Modality Nuclear Medicine 11/23/2024 8:30 AM CLINICAL DATA ANALYST Narrative 11/23/2024 11:18 AM CLINICAL DATA ANALYST [address] [place] [address] [employer] Report Patient Name: ALIRIO RIVERA CHARISSEBella : 1960 Study Date: 11/23/2024 8:30:00 AM Gender: F Tech: ivon howell Ref Provider: JUAN MANULE DEMARCO Height(Cm): 173 BSA: 3.12 Weight(Kg): 203 Heart Rate: 131 Order Provider: JUAN MANUEL DEMARCO PROCEDURES: Pharmacologic SPECT Report.: Myocardial perfusion [...] By: Tierney Regalado MD 11/23/2024 10:53:38 AM CLINICAL DATA ANALYST Procedure Note Tierney Regalado MD - 11/23/[address] [place] [address] [employer] Report Patient Name: ALIRIO CHARISSE RIVERA L : 1960 Study Date: 11/23/2024 8:30:00 AM Gender: F Tech: ivon Gaytan Provider: JUAN MANUEL DEMARCO Height(Cm): 173 BSA: 3.12 Weight(Kg): 203 Heart Rate: 131 Order Provider: JUAN MANUEL DEMARCO PROCEDURES: Pharmacologic SPECT Report.: Myocardial perfusion [...] By: Tierney Regalado MD 11/23/2024 10:53:38 AM CLINICAL DATA ANALYST Juan Manuel Demarco MD CV STRESS PROCEDURES Final Resu lt * ECG 12 lead (11/12/2024 12:43 PM CLINICAL DATA ANALYST) Juan Manuel Demarco MD ECG ORDERABLES Final Result from Last 3 Months Insurance [facility] SENIOR [facility]PPLE[facility] MEDICARE AET SENIOR SUPPLEMENT Care Teams Hybrid Technologist Relationship Specialty Start Date End Date Dante Fam DO [address] [place] [address] PCP - General Family Medicine 05/24/22
== END 2025-01-18 15:21 | disposition home or self-care (01) ==
LOC: CHSLAB 15:21
PROVIDERS: PCP Family Medicine; Visit Provider Family Medicine
DX: K12.1 Other forms of stomatitis (principal)
CPT/HCPCS: 87252

== ENCOUNTER 2025-05-16 13:27 | Outpatient (CLI) | payer MEDICARE, SELFPAY ==
--- OUTSIDE RECORDS SUMMARY | 2025-05-16 13:30 | XMS_ITS | Clinical Summary ---
Author Organization [facility] A Address [address] [place] [address] Care Team Providers Care Assistant To The Dean Name Role Phone NazDante wilder Saunders Primary Care Provider Allergies Active Allergy Reactions [...] on file Legal Sex Female 8:08 AM BASEBALL SEWER HAND Gender Identity Female 08/19/2019 8:00 PM BASEBALL SEWER HAND Sexual Orientation Straight 08/19/2019 8: 00 PM BASEBALL SEWER HAND Obstetrics History Last Filed Vital Signs Vital Sign Reading Time Taken Comments Blood Pressure 108/72 11/12/2024 12:11 PM BASEBALL SEWER HAND Pulse 66 11/12/2024 12:11 PM BASEBALL SEWER HAND Temperature 37.2 C (98.9 F) 08/06/2024 6:04 PM BASEBALL SEWER HAND Respiratory Rate 18 11/12/2024 12:11 PM BASEBALL SEWER HAND Oxygen Saturation 98% 08/06/2024 6:04 PM BASEBALL SEWER HAND Inhaled Oxygen Concentration - - Weight 94.3 kg (208 lb) 11/12/2024 12:11 PM BASEBALL SEWER HAND Height 172.7 cm (5' 8) 11/12/2024 12:11 PM BASEBALL SEWER HAND Body Mass Index 31.63 11/12/2024 12:11 PM BASEBALL SEWER HAND Plan of Treatment Health Maintenance Due Date [...] season) 2024 10/29/2021, 01/21/2021, 12/24/2020 Influenza Vaccine (#1) 2025 Insurance MEDICARE [employer] SENIOR SUPPLEMENT MEDICARE [employer] SENIOR SUPPLEMENT Care Teams Assistant To The Dean Relationship Specialty Start Date End Date Dante Fam DO [address] [place] [address] PCP - General Family Medicine 05/24/22
[2025-05-16 14:05] LABS: Hematocrit 39.4 % (35.0-42.0); Hemoglobin 13.1 g/dL (11.7-13.8); Immature Granulocyte Percent A 0.4 % (0.0-0.0); Lymphocytes Absolute Auto 1.39 K/mm3 (1.10-4.50); Mean Corpuscular HGB Conc 33.2 g/dL (32-36); Mean Corpuscular Hemoglobin 29.8 pg (27.0-31.0); Mean Corpuscular Volume 89.7 fL (78.0-102.0); Nucleated Red Blood Cells Absolute Auto 0.00 K/mm3 (0.00-0.00); Nucleated Red Blood Cells Perc 0.0 % (0-0.0); Platelet Count Result 222 K/mm3 (150-420); Red Blood Count 4.39 M/mm3 (4.20-5.40); White Blood Count 5.2 K/mm3 (4.8-10.8)
[2025-05-16 14:30] LABS: Alanine Aminotransferase 15 U/L (6-35); Albumin Level 4.7 g/dL (3.5-5.1); Alkaline Phosphatase 53 U/L (38-126); Anion Gap 6 mmol/L (4-12); Aspartate Amino Transferase 23 U/L (14-36); Bilirubin,Total 0.7 mg/dL (0.2-1.3); Blood Urea Nitrogen 20 mg/dL (7-17); CRP < 0.5 mg/dL (<1.0); Calcium 9.8 mg/dL (8.4-10.2); Carbon Dioxide 32 mmol/L (22-30); Chloride 101 mmol/L (98-107); Estimated Glomerular Filt Rate > 60; Glucose 109 mg/dL (65-110); Iron 134 ug/dL (37-170); Osmolality Calculated 291 mOsm/kg (285-295); Potassium 4.4 mmol/L (3.4-5.0); Sodium 139 mmol/L (137-145); Total Protein 7.6 g/dL (6.3-8.2)
[2025-05-16 14:37] LABS: Percent Iron Saturation 38 % (20-50)
[2025-05-16 15:01] LABS: Thyroid Stimulating Hormone Reflex 0.383 uIU/mL (0.465-4.68)
[2025-05-16 15:03] LABS: Ferritin 50.40 ng/mL (11.1-264)
[2025-05-16 15:34] LABS: Vitamin B12 372.0 pg/mL (239-931)
[2025-05-16 15:36] LABS: Free T4 Free Thyroxine Reflex 1.23 ng/dL (0.78-2.19)
[2025-05-17 12:08] LABS: FSH 53.2 mIU/mL (25.8-134.8); LH 44.4 mIU/mL (7.7-58.5)
== END 2025-05-16 13:28 | disposition home or self-care (01) ==
LOC: CHSLAB 13:28
PROVIDERS: PCP Family Medicine; Visit Provider Family Medicine
DX: R23.2 Flushing (principal); E03.9 Hypothyroidism, unspecified; L65.9 Nonscarring hair loss, unspecified; D64.9 Anemia, unspecified; E53.8 Deficiency of other specified B group vitamins; D50.9 Iron deficiency anemia, unspecified
CPT/HCPCS: 36415; 80053; 82607; 82728; 82746; 83001; 83002; 83540; 83550; 84439; 84443; 85025; 86140